=== PATIENT | female | born 1975 | race Native Hawaiian/Other Pacific Islander ===

== ENCOUNTER 2021-08-15 11:26 | Emergency (ER) | payer OTHER ==
[~2021-08-15] VITALS: Ht 170.2 cm; Wt 90.7 kg
[2021-08-15 11:31] VITALS: BP 155/93; TEMP 97.3
== END 2021-08-15 12:35 | disposition home or self-care (01) ==
LOC: ED 11:26
DX: S61.241A Puncture wound with foreign body of left index finger without damage to nail, initial encounter (principal); W27.3XXA Contact with needle (sewing), initial encounter; Y92.89 Other specified places as the place of occurrence of the external cause
CPT/HCPCS: 96372; 99283; J2270; J2405; J7040